=== PATIENT | female | born 1985 | race Caucasian/White ===

== ENCOUNTER 2020-05-05 04:30 | Inpatient (IN) | payer BC, SELFPAY ==
[2020-05-05] VITALS (66 sets, daily range): BP systolic 60–112; BP diastolic 29–75; PULSE 60–96; RESP 12–20; TEMP 36.2–37.1; O2SAT 95–100; BMI 30.1
--- OUTSIDE RECORDS SUMMARY | 2020-05-05 04:51 | XMS_ITS ---
:1985 Author Care Team Providers Name Role Phone Konstantin Del Toro Primary Care Provider Unavailable Allergies Code Code System Name Reaction Severity Status Onset NKDA ? Medications Name Status Start Date Stop Date ? ? Afluria Qd (36 mos up)(PF)60 Active ? Not available mcg (15 mcg x4)/0.5 mL IM syringe Boostrix Tdap 2.5 Lf unit-8 mcg-5 Active ? Not available Lf/0.5 mL intramuscular syringe Multi Vitamin Active ? Not available nitrofurantoin Completed ? 10/09/2019 monohydrate/macrocrystals 100 mg capsule Active ? Not available Problems Name Status Onset Date Source ? Active 11/02/2019 ? Procedures Date Name Performed by ? 06/24/2017 Section Information not avai lable 06/24/2012 Section Information not avai lable 02/23/2008 Breast Surgery Information not avai lable Notes: breast cyst aspiration 10/13/2019 US, Obstetric, 1St Trimester, [place] Single Gestation [address] [place] [address] ([address]) 12/28/2019 US, Obstetric, 2Nd or 3Rd Trimester [facility] [address] [place] [address] (Work [address]) Results
--- OUTSIDE RECORDS SUMMARY | 2020-05-05 04:51 | XMS_ITS | Encounter Summary ---
:1985 Author Reason for Visit OB visit Assessment and Plan Assessment Note Patient is ___weeks . Discu ssed plan. 1. Routine care Discussion Note: None recorded.Patient educational handouts: No information available. Plan of Care Reminders Provider Appointments Surgery 60 [address] Manuel janelleo Nicholas 05/06/2020 MD [place] 7:30AM ? Post Op Konstantin hammer Visit 05/16/2020 MD [place] 10:15AM Lab None ? ? recorded. Referral None ? ? recorded. Procedures None ? ? recorded. Surgeries None ? ? recorded. Imaging None ? ? recorded. Medications Name Start Date ? ? Afluria Qd (36 mos up)(PF)60 mcg (15 mcg x4)/0 .5 mL IM ? syringe Boostrix Tdap 2.5 Lf unit-8 mcg-5 Lf/0.5 mL intramuscu lar syringe ? Multi Vitamin ? ? Medications Administered None recorded. Vitals Height Weight BMI Blood Pressure 5 ft 2 in 161 lbs 29.4 kg/m2 102/67 mm[Hg] Results Lab Results None recorded. Allergies Code Code System Name Reaction Severity Onset
--- OUTSIDE RECORDS SUMMARY | 2020-05-05 04:51 | XMS_ITS | Encounter Summary ---
:1985 Author Reason for Visit OB visit 33wks 0days Assessment and Plan Assessment Note Patient is 33___weeks . Dis cussed plan. 1. Routine care Discussion Note: None [...] ft 2 in 161 lbs 29.4 kg/m2 109/73 mm[Hg] Results Lab Results None recorded. Allergies Code Code System Name
--- OUTSIDE RECORDS SUMMARY | 2020-05-05 04:51 | XMS_ITS | Encounter Summary ---
:1985 Author Reason for Visit OB visit 36wks 6days Assessment and Plan 1. Routine care Discussion Note: None recorded.Patient educational handouts: No information available. Plan of Care Reminders Provider Appointments Surgery 60 Luis Manuel lfo Nicholas 05/06/2020 MD [place] 7:30AM ? Post Op Konstantin Memo harman Visit 05/16/2020 MD [place] 10:15AM Lab None [...] BMI Blood Pressure 5 ft 2 in 169 lbs 30.9 kg/m2 116/76 mm[Hg] Results Lab Results None recorded. Allergies Code Code System Name Reaction Severity Onset NKDA ? ?
--- OUTSIDE RECORDS SUMMARY | 2020-05-05 04:51 | XMS_ITS | Encounter Summary ---
:1985 Author Reason for Visit OB visit 34wks 3days Assessment and Plan 1. Routine care Discussion [...] BMI Blood Pressure 5 ft 2 in 166 lbs 30.4 kg/m2 109/71 mm[Hg] Results Lab Results None recorded. Allergies Code Code System Name Reaction Severity Onset NKDA ? ?
--- OUTSIDE RECORDS SUMMARY | 2020-05-05 04:51 | XMS_ITS | Encounter Summary ---
:1985 Author Reason for Visit OB visit OB [id number] EDC 05/13/2020 LMP 08/07/2019 Assessment and Plan Assessment Note Patient is _28__weeks . Dis cussed plan. 1. Routine care Discussion Note: None recorded.Patient educational handouts: No information available. Plan of Care Reminders Provider Appointments Surgery 60 Luis Manuel foreign Nicholas 05/06/2020 MD [place] 7:30AM ? Post [...] BMI Blood Pressure 5 ft 2 in 156 lbs 28.5 kg/m2 118/74 mm[Hg] Results Lab Results None recorded. Allergies Cod
--- OUTSIDE RECORDS SUMMARY | 2020-05-05 04:51 | XMS_ITS | Encounter Summary ---
:1985 Author Reason for Visit OB visit OB [id number] EDC 05/13/2020 LMP 0 Assessment and Plan Assessment Note Patient is _37__weeks . Dis cussed plan. 1. Routine care [...] BMI Blood Pressure 5 ft 2 in 171 lbs 31.3 kg/m2 111/72 mm[Hg] Results Lab Results None recorded. Allergies
--- OUTSIDE RECORDS SUMMARY | 2020-05-05 04:51 | XMS_ITS | Encounter Summary ---
:1985 Author Reason for Visit OB visit OB [id number] EDC 05/13/2020 LMP 08/12/2019 Assessment and Plan Assessment Note Patient is _36__weeks . Dis cussed plan. 1. Routine care [...] BMI Blood Pressure 5 ft 2 in 164 lbs 30 kg/m2 112/71 mm[Hg] Results Lab Results None recorded. Allergies Cod
[2020-05-05] MEDS: AMPICILLIN 2 GM/NS 100 ML 2 GM/100 ML BAG IVPB (05:24)
[2020-05-05] MEDS: LACTATED RINGERS 1,000 ML 125 ML IV CONT ×2 (05:25→06:59)
[2020-05-05 05:46] LABS: Basophils Percent Auto 0.3 % (0.2-1.2); Eosinophils Absolute Auto 0.1 K/mm3 (0-0.3); Eosinophils Percent Auto 1.2 % (0-4.4); Hematocrit 32.5 % (37.0-47.0); Hemoglobin 10.4 g/dL (12.0-15.0); Immature Granulocyte Absolute 0.03 K/mm3 (0.00-0.031); Immature Granulocyte Percent A 0.4 % (0-0.5); Lymphocytes Absolute Auto 1.32 K/mm3 (0.9-3.2); Mean Corpuscular Volume 87.4 fl (80-100); Mean Platelet Volume 10.6 fl (7.4-10.4); Monocytes Absolute Auto 0.4 K/mm3 (0.1-0.6); Neutrophils Absolute Auto 5.5 K/mm3 (1.3-6.7); Neutrophils Percent Auto 75.1 % (45.5-73.1); Platelet Count Result 225 k/mm3 (150-375); Red Blood Count 3.72 M/mm3 (4.2-5.4); White Blood Count 7.4 K/mm3 (4.5-10.0)
--- NOTE | 2020-05-05 05:50 | P.PNAN_ITS ---
Anes - Eval Pre Procedure Procedure: Operation Date: 05/06/20 07:30 Proposed Procedures p Repeat Section with Bilateral Tubal Ligation - Len Del Toro MD Date/Time: 05/05/20 05:50 Pre Op Diagnosis: SROM, Prior c/s Patient Data Age: 34 Gender: F Height: Weight: Last Vital Signs Temp 36.9 C 05/05/20 04:38 Pulse 87 05/05/20 05:15 BP 110/61 05/05/20 05:15 Allergies Allergy/AdvReac Type Severity Reaction Status Date / Time No Known Drug Allergies Allergy Unknown Verified 12/21/17 14:36 Home Medications Medication Instructions Recorded Confirmed Type PNV cmb#95-ferrous fumarate-FA 1 tablet PO DAILY 04/15/20 04/15/20 History [] Laboratory Tests 05/05/20 05/05/20 05:09 05:09 WBC 7.4 K/mm3 K/mm3 (4.5-10.0) RBC 3.72 M/mm3 L M/mm3 (4.2-5.4) Hgb 10.4 g/dL L g/dL (12.0-15.0) Hct 32.5 % L % (37.0-47.0) MCV 87.4 fl fl (80-100) MCH 28.0 pg pg (26-34) MCHC 32.0 g/dl g/dl (32-36) RDW 14.0 % % (11.5-14.5) Plt Count 225 k/mm3 k/mm3 (150-375) MPV 10.6 fl H fl (7.4-10.4) Immature Gran % (Auto) 0.4 % % (0-0.5) Neut % (Auto) 75.1 % H % (45.5-73.1) Lymph % (Auto) 18.0 % L % (18.3-44.2) [place] % (Auto) 5.0 % % (2.6-8.5) Eos % (Auto) 1.2 % % (0-4.4) Baso % (Auto) 0.3 % % (0.2-1.2) Lymph # (Auto) 1.32 K/mm3 K/mm3 (0.9-3.2) [place] # (Auto) 0.4 K/mm3 K/mm3 (0.1-0.6) Eos # (Auto) 0.1 K/mm3 K/mm3 (0-0.3) Baso # (Auto) 0.0 K/mm3 K/mm3 (0.0-0.1) Abs Immat Gran (auto) 0.03 K/mm3 K/mm3 (0.00-0.031) Absolute Neuts (auto) 5.5 K/mm3 K/mm3 (1.3-6.7) Absolute Nucleated RBC 0.0 K/mm3 K/mm3 (0.0-0.012) Nucleated RBC % 0.0 % % (0.0-0.2) RPR Pending Patient hx anesthesia problems: none Family hx anesthesia problems: none PMFSH Family History Family History Father Hypertension Sibling Asthma Social History Social History Substance use: never Gender identity (if verbalized by the patient): Female Spiritual care concerns: No Exam Day of Procedure 05/05/20 05:50 Patient weight: overweight Heart: regular rate and rhythm Lungs: clear to auscultation and normal air movement Airway: Mallampati scale class II Neurological: alert and oriented
--- NOTE | 2020-05-05 06:11 | PC.NURSE ---
Pt is feeling contractions and breathing with some. Pt getting kids settled and will be here.SVE deferred since SROM.
--- NOTE | 2020-05-05 06:36 | PC.NURSE ---
Pt having contractions through the nights. SROM at 0450. Clear fluid. Contractions on arrival. Pt states tolerable but getting more uncomfortable. Rates as 5-6.
--- NOTE | 2020-05-05 07:23 | PM.IMHP ---
H&P: HPI History of Present Illness Date/Time: 05/05/20 07:23 Chief complaint: SROM, Prior c/s Narrative: Tiki Maldonado is a 34 year old female, multiparous, at 39 weeks gestation presents with spontaneous rupture of membranes. She had a scheduled planned for tomorrow. She has unwanted fertility. We have agreed to perform repeat delivery and tubal ligation. She denies any vaginal bleeding or contractions. She denies any nausea, vomiting, fever, chills. She denies any chest pain or shortness of breath. Review of Systems Constitutional: Constitutional: Reports no additional constitutional complaints, Denies fatigue, Denies headache(s), Denies lethargy and Denies weakness Eyes: Eyes: Reports no additional eye complaints, Denies blurry vision and Denies photophobia ENT: Reports as per HPI, Denies headache(s) and Denies neck pain Cardiovascular: Cardiovascular: Denies chest pain, Denies diaphoresis, Denies leg edema, Denies palpitations and Denies dyspnea Respiratory: Respiratory: Denies hemoptysis, Denies dyspnea and Denies wheezing Gastrointestinal: Gastrointestinal: Denies abdominal pain, Denies melena, Denies bloating, Denies hematochezia, Denies nausea and Denies vomiting Genitourinary: Genitourinary: Reports no additional female genitourinary complaints Musculoskeletal: Musculoskeletal: Denies joint swelling, Denies neck pain, Denies numbness and Denies stiffness Neurologic: Denies Abnormal speech present, Denies confusion, Denies headache(s), Denies numbness and Denies weakness Psychiatric: Psychiatric: Denies anxiety, Denies confusion, Denies depression, Denies homicidal ideation and Denies suicidal ideation Endocrine: Endocrine: Denies fatigue and Denies palpitations Allergic/Immunologic: Allergic/Immunologic: Denies wheezing PMFSH Family History Family History Father Hypertension Sibling Asthma Social History Social History Smoking status: Former smoker Substance use: never Gender identity (if verbalized by the patient): Female Spiritual care concerns: No Meds Home Medications and Allergies Home Medications Medication Instructions Recorded Confirmed Type PNV cmb#95-ferrous fumarate-FA 1 tablet PO DAILY 04/15/20 04/15/20 History [] Allergies Allergy/AdvReac Type Severity Reaction Status Date / Time No Known Drug Allergies Allergy Unknown Verified 12/21/17 14:36 Vital Signs Vital Signs - 24 hr 05/05/20 04:38 05/05/20 05:00 05/05/20 05:15 Temperature 98.4 F Pulse Rate 96 87 Respiratory Rate Blood Pressure 100/75 110/61 05/05/20 06:00 05/05/20 06:30 Temperature 98.4 F Pulse Rate 90 Respiratory Rate 18 Blood Pressure 105/65 Exam Const: General: healthy appearing, comfortable and no acute distress; No confusion Orientation/consciousness: No confusion Eyes: Direct Ophthalmoscopy: No photophobia Resp: Auscultation: clear to auscultation bilaterally, no rales, no rhonchi and no wheezes Cardio: Rate: regular rate Heart sounds: no click, no murmurs and no rubs GI: Inspection: non-distended GI Palp: No abdominal tenderness Auscultation: normal bowel sounds Neuro: General: No confusion Speech: No Abnormal speech present Extrem: General: normal to inspection, no pedal edema and no calf tenderness H&P: Results Labs Labs: Short CBC 05/05/20 Range/Units 05:09 WBC 7.4 (4.5-10.0) K/mm3 Hgb 10.4 L (12.0-15.0) g/dL Hct 32.5 L (37.0-47.0) % Plt Count 225 (150-375) k/mm3 Assessment and Plan Assessment and plan (1) Encounter for female sterilization procedure: Code(s): Z30.2 - Encounter for sterilization Status: Acute (2) Previous delivery, delivered: Code(s): O34.219 - Maternal care for unspecified type scar from previous delivery Status:
--- NOTE | 2020-05-05 08:40 | WPDANESEFPP ---
Anes - Eval Final PreProcedure Day of Procedure 05/05/20 08:40 Patient weight: overweight Heart: regular rate and rhythm Lungs: clear to auscultation Airway: Mallampati scale class II Neurological: alert and oriented ASA classification: II Emergent: no Anesthetic plan: proceed Anesthesia type and monitoring: regional spinal and standard monitoring Informed Consent: The patient's anesthetic plan and its attendant risks and benefits were discussed with the patient/family/POA. Questions were solicited and answers provided to the satisfaction of the patient/family/POA.
[2020-05-05] MEDS: KETOROLAC 30 MG/ML VIAL (*BKC) IV PUSH (09:25)
--- NOTE | 2020-05-05 09:36 | PM.PROC ---
Procedure Note - Detailed Date of procedure: 05/05/20 Pre-op diagnosis: SROM, Prior c/s Unwanted fertility Post-op diagnosis: same Procedure performed: Repeat low-transverse delivery, tubal ligation,Repair of incidental cystotomy Description of procedure: The patient was taken the operating room. She was prepped and draped in the dorsal supine position with leftward tilt after induction of spinal anesthetic. When anesthesia was found to be adequate a low-transverse skin incision was made and carried down to the level the fascia with the knife. The fascial incision was made at the midline with a scalpel. The fascial incision was extended laterally with Sellers scissors. The fascia was tented upward superior and inferior with Rosalva clamps. The rectus muscles were dissected off bluntly. The rectus muscles at the midline. The preperitoneal fat was dissected bluntly at the superior aspect of the separate the rectus muscles. The peritoneal cavity was entered bluntly in the same area. The peritoneal incision was extended superior and inferior. the bladder was positioned high on the uterus. It was about 2[address] up the anterior surface of the uterus. A bladder flap was created. This was difficult. There was dense adhesions between the bladder and the lower uterine segment. Attempt to separate the bladder from the lower uterine segment a defect was created in the bladder dome. The bladder was very thin in this area and it was densely adherent to the lower uterine segment. There was a lot of vascularity in this area as well. With the bladder flap completed , the bladder blade was inserted. A low-transverse incision was made on the uterus with the scalpel. It was carried down the level of the amniotic cavity with a knife. The amniotic cavity bluntly. The uterine incision was made laterally with blunt traction. The was delivered. The cord was clamped and cut. The infant was handed off to waiting pediatric staff. Cord bloods were obtained. The placenta was removed manually. The uterus was exteriorized. Uterus cleared of all clots and debris. Uterus closed in 0 Vicryl in a running locked fashion. Fallopian tube was grasped in the ampullary region with a Joan. It was raised away from the accompanying vein. A window was created in the broad ligament in this area of the tube. 0 Vicryl was used to ligate the proximal distal ends of the skeletonize region of the tube. The segment of the tube was resected with scissors. The cut surfaces were cauterized. On the contralateral side the procedure was performed identically. The uterus was returned to the abdomen. The bladder was repaired with 3 layers imbricated Vicryl suture. The 1st layer being 3 0 Vicryl. The defect was closed in an imbricating fashion. A 2nd layer 2 0 Vicryl was placed. This was done in imbricating fashion to bolster the initial closure. The bladder was filled with methylene blue stained Normal saline. A small defect remained and fluid slowly progressed from this defect. Methylene blue could be visualized through thin layers the bladder wall. The bladder was mobilized freeing it up on the lateral aspects and a 0 Vicryl was then used to bring in more of the bladder dome. Again the bladder was filled with normal saline and was found to be watertight. The gutters were cleared of all clots and debris. The fascia was closed 0 Vicryl in a running fashion. Subcutaneous tissue was irrigated and bleeding areas were cauterized. The skin was closed with subcuticular absorbable carmen. The incision was covered with derma barnett. The patient tolerated the procedure well. She was taken recovery room stable condition. Sponge, lap, needle counts were correct x2. Anesthesia: spinal Surgeon: Len Del Toro MD Estimated blood loss (mL): 210 Drains: No Packing: No Pathology: none sent Complications: Other complications ( Incidental cystotomy.) Conditi
--- NOTE | 2020-05-05 10:49 | SUR.OPER ---
Second blake catheter placed at 0925 due to leaking of fluid around 1st blake catheter.
[2020-05-05] MEDS: OXYTOCIN 30 UNITS/NS 500 ML 30 UNITS/500 ML BAG 125 UNITS IV CONT (11:30)
--- NOTE | 2020-05-05 11:35 | PC.NURSE ---
Edit to charting from [id number] for wound description. Wound well-approximated and dermiplex intact.
[2020-05-05 12:17] LABS: Rapid Plasma Reagin Non-Reactive (NonReactive)
--- NOTE | 2020-05-05 12:18 | OBPPTRN ---
Patient transferred to post room # 290 via stretcher. Support person present. Oriented to unit, room, information board, rooming in, admission packet and security measures. Patient verbalizes understanding.
[2020-05-05] MEDS: DEXTROSE 5%/0.45% SOD CHL 1,000 ML 125 ML IV CONT ×2 (16:04→20:00)
[2020-05-05] MEDS: DOCUSATE SODIUM 100 MG CAPSULE PO (17:45)
[2020-05-05] MEDS: IBUPROFEN 600 MG TABLET PO ×2 (17:45→23:45)
[2020-05-05] MEDS: HYDROcodone/acetaminophen (*CRX) 5-325 MG TABLET 1 TAB PO ×2 (17:46→23:45)
--- NOTE | 2020-05-05 18:40 | PC.NURSE ---
Used the bladder scanner on patient and found only 140mL in patient's bladder. IV bolus given to increase urine output.
[2020-05-06 04:45] VITALS: BP 97/58; PULSE 93; RESP 16; TEMP 36.7
[2020-05-06] MEDS: HYDROcodone/acetaminophen (*CRX) 5-325 MG TABLET 1 TAB PO ×5 (04:47→23:00)
[2020-05-06 05:55] LABS: Basophils Percent Auto 0.3 % (0.2-1.2); Eosinophils Absolute Auto 0.1 K/mm3 (0-0.3); Eosinophils Percent Auto 1.3 % (0-4.4); Hematocrit 25.1 % (37.0-47.0); Hemoglobin 7.9 g/dL (12.0-15.0); Immature Granulocyte Absolute 0.03 K/mm3 (0.00-0.031); Immature Granulocyte Percent A 0.3 % (0-0.5); Lymphocytes Absolute Auto 0.73 K/mm3 (0.9-3.2); Lymphocytes Percent Auto 7.7 % (18.3-44.2); Mean Corpuscular HGB Conc 31.5 g/dl (32-36); Mean Corpuscular Hemoglobin 28.6 pg (26-34); Mean Corpuscular Volume 90.9 fl (80-100); Mean Platelet Volume 10.7 fl (7.4-10.4); Monocytes Absolute Auto 0.6 K/mm3 (0.1-0.6); Monocytes Percent Auto 5.8 % (2.6-8.5); Neutrophils Percent Auto 84.6 % (45.5-73.1); Platelet Count Result 165 k/mm3 (150-375); Red Blood Count 2.76 M/mm3 (4.2-5.4); Red Cell Distribution Width 14.5 % (11.5-14.5); White Blood Count 9.5 K/mm3 (4.5-10.0)
--- NOTE | 2020-05-06 07:45 | WPDANLDPN2 ---
Anes-Prog Note L&D Date/Time: 05/06/20 07:45 Comfortable throughout: section Neuraxial method: spinal Epidural/Spinal procedure site: clean & non-tender Neuro status: Neuro function grossly intact. Cardiovascular status: normal Respiratory status: normal Airway patency: baseline Mental status: baseline Post-Op hydration status: normal Vital Signs: Last Vital Signs Temp 36.7 C 05/06/20 04:45 Pulse 93 05/06/20 04:45 Resp 16 05/06/20 04:45 BP 97/58 L 05/06/20 04:45 Pulse Ox 100 05/05/20 16:00 Pain score (VAS): 07/03 I/O: Intake & Output 05/05/20 05/05/20 05/06/20 15:59 23:59 07:59 Intake Total 600 2285 600 Output Total 1470 1025 650 Balance -870 1260 -50 Post-procedural complaints: none Patient feedback: Patient satisfied with anesthetic care.
--- NOTE | 2020-05-06 07:45 | WPDANLDNPN2 ---
Anes-Prog Note L&D-Neuraxial Date/Time: 05/06/20 07:45 Neuraxial medications: intrathecal PF morphine Opiod-related complaints: none Patient feedback: Patient satisfied with post-operative pain management.
--- NOTE | 2020-05-06 07:54 | PM.OBPNVD ---
OB - PN: Subj Subjective Date/time seen: 05/06/20 07:54 Patient comments: no complaints, pain well controlled, tolerating diet and flatus present OB - PN: Obj Data Labs CBC & Chem 7: 05/06/20 04:46 Labs: Laboratory Results - last 24 hr 05/05/20 05/05/20 05/06/20 05:09 05:09 04:46 WBC 9.5 RBC 2.76 L Hgb 7.9 L Hct 25.1 L MCV 90.9 MCH 28.6 MCHC 31.5 L RDW 14.5 Plt Count 165 MPV 10.7 H Immature Gran % (Auto) 0.3 Neut % (Auto) 84.6 H Lymph % (Auto) 7.7 L [place] % (Auto) 5.8 Eos % (Auto) 1.3 Baso % (Auto) 0.3 Lymph # (Auto) 0.73 L [place] # (Auto) 0.6 Eos # (Auto) 0.1 Baso # (Auto) 0.0 Abs Immat Gran (auto) 0.03 Absolute Neuts (auto) 8.0 H Absolute Nucleated RBC 0.0 Nucleated RBC % 0.0 RPR Non-reactive Blood Type O Positive Antibody Screen Negative OB - PN A/P Plan day: 1 Comments: Post Op LTCS - no problems, incidental cystotomy - to continue Castro for one week, cystogram at that time Time Spent With Patient Time: Total time spent is greater than 50% in coordination of care (as documented) at patient's floor/unit and/or counseling patient: Exam Const: General: cooperative, healthy appearing, comfortable and no acute distress Resp: Auscultation: no crackles, no rales, no rhonchi and no wheezes Cardio: Rhythm: regular rhythm Heart sounds: no click and no murmurs GI: Inspection: non-distended Auscultation: normal bowel sounds Extrem: General: normal to inspection, no pedal edema and no calf tenderness
[2020-05-06 08:20] VITALS: BP 105/62; PULSE 76; RESP 16; TEMP 36.8; O2SAT 100
[2020-05-06] MEDS: DOCUSATE SODIUM 100 MG CAPSULE PO ×2 (08:35→17:29)
[2020-05-06] MEDS: POLYSACCHARIDE IRON COMPLEX 150 MG CAPSULE PO ×2 (08:35→17:29)
[2020-05-06] MEDS: MULTIVIT/MIN/PREN/FOL AC/IRON TABLET 1 TAB PO (08:35)
[2020-05-06] MEDS: IBUPROFEN 600 MG TABLET PO ×3 (08:36→23:00)
[2020-05-06] MEDS: LANOLIN (LANSINOH) 7.5 GM CREAM 1 APPLIC TOPICAL (08:36)
[2020-05-06] MEDS: SIMETHICONE 80 MG TAB.CHEW PO ×4 (13:34→23:00)
[2020-05-06 18:51] VITALS: BP 115/72; PULSE 94; RESP 16; TEMP 36.7
[2020-05-07 08:15] VITALS: BP 104/66; PULSE 88; RESP 18; TEMP 36.6; O2SAT 98
[2020-05-07] MEDS: DOCUSATE SODIUM 100 MG CAPSULE PO ×2 (08:15→16:25)
[2020-05-07] MEDS: HYDROcodone/acetaminophen (*CRX) 5-325 MG TABLET 1 TAB PO ×4 (08:15→22:40)
[2020-05-07] MEDS: IBUPROFEN 600 MG TABLET PO ×3 (08:18→22:40)
[2020-05-07] MEDS: SIMETHICONE 80 MG TAB.CHEW PO ×4 (08:19→22:40)
[2020-05-07] MEDS: MULTIVIT/MIN/PREN/FOL AC/IRON TABLET 1 TAB PO (08:20)
[2020-05-07] MEDS: POLYSACCHARIDE IRON COMPLEX 150 MG CAPSULE PO ×2 (08:20→16:26)
--- NOTE | 2020-05-07 13:36 | PM.OBPNVD ---
OB - PN: Subj Subjective Date/time seen: 05/07/20 1255 Doing well with recovery but very worried about bladder injury. had 1cc urine leakage around the cath associated with what felt like a bladder spasm and she thinks this means the bladder is not healing. Discussed that both small leakage around catheter and some bladder spasms are common in this situation. Reassured, pt voiced feeling better. Baby doing great, . Pain reasonable, no flatus yet, ambulating. Normal lochia. OB - PN: Obj Data Labs CBC & Chem 7: 05/06/20 04:46 OB - PN A/P Time Spent With Patient Time: Routine post op care plus blake for a week due to bladder injury at R CS. Anemia, asymptomatic- iron Doing well. Home probably tomorrow. Exam Narrative: Exam Narrative: NAD blake in abdomen soft, appropriately tender, incision CDI Extremities nontender with 2+ edema
[2020-05-07 18:40] VITALS: BP 105/64; PULSE 76; RESP 16; TEMP 36.8
[2020-05-07] MEDS: BISACODYL 10 MG SUPPOSITORY RECTAL (23:15)
[2020-05-08] MEDS: HYDROcodone/acetaminophen (*CRX) 5-325 MG TABLET 1 TAB PO ×4 (02:40→14:17)
[2020-05-08] MEDS: SIMETHICONE 80 MG TAB.CHEW PO ×4 (02:40→14:18)
[2020-05-08] MEDS: IBUPROFEN 600 MG TABLET PO ×2 (05:30→14:15)
[2020-05-08 08:00] VITALS: BP 109/62; PULSE 74; RESP 18; TEMP 36.8; O2SAT 98
[2020-05-08] MEDS: MULTIVIT/MIN/PREN/FOL AC/IRON TABLET 1 TAB PO (09:21)
[2020-05-08] MEDS: DOCUSATE SODIUM 100 MG CAPSULE PO (09:22)
[2020-05-08] MEDS: POLYSACCHARIDE IRON COMPLEX 150 MG CAPSULE PO (09:22)
--- NOTE | 2020-05-08 10:34 | PM.OBPNVD ---
OB - PN: Subj Subjective Date/time seen: 05/08/20 10:34 POD3 Doing very well. Feels much better after we talked yesterday. Spasms improving. Back sore but pain overall controlled. Had flatus and small BM yesterday evening after suppository. Ambulating. Home with blake. OB - PN: Obj Data Labs CBC & Chem 7: 05/06/20 04:46 OB - PN A/P Plan day: 3 Plan: routine care and discharge home Comments: Doing well. Home today with blake and leg bag cystourethrogram scheduled FU 1 week Time Spent With Patient Time with patient: less than 15 minutes Exam Narrative: Exam Narrative: NAD abdomen soft, appropriately tender, incision CDI Extremities nontender with 1+ edema
--- NOTE | 2020-05-08 10:42 | PM.OBDSVD ---
DS: Admitting Diagnosis Admitting Diagnosis Admitting Diagnosis: SROM, Prior c/s DS: Discharge Diagnosis Discharge Diagnosis (1) Previous delivery, delivered: Code(s): O34.219 - Maternal care for unspecified type scar from previous delivery Status: Acute (2) Cystostomy care: Code(s): Z43.5 - Encounter for attention to cystostomy Status: Acute (3) Encounter for female sterilization procedure: Code(s): Z30.2 - Encounter for sterilization Status: Acute OB - DS: Summary OB Procedures : None OB Procedures Intrapartum: OB Procedures: : P.P. tubal ligation Peripartum Data Procedures: Procedures Operation Date: 05/05/20 07:30 Actual Procedures Side Surgeon p Section Not Applicable Len Del Toro MD Time Spent with Patient Time attestation: Total time spent providing and/or coordinating discharge services:20 min Exam Narrative: Exam Narrative: NAD abdomen soft, appropriately tender, incision CDI DS: Data Data Completed and Pending Completed studies during hospitalization: Pending at discharge 05/05/20 10:09 Surgical [PTH] Routine Discharge Plan Discharge Attending physician on discharge: Cristina Godinez Discharging Clinician: Cristina Godinez Anticipated Discharge Date/Time: 05/08/20 15:00 Patient Disposition: Home, Self-Care Activity: may shower, may drive after 2 weeks and pelvic rest Diet: as tolerated Wound Care Instructions: incision open to air Discharge Instructions: Dr. Del Toro wants you to return to the hospital for an outpatient cystogram. [facility] (next to the Main Hospital entrance) Appointment: 05/12/20 at 9:00 a.m. (ARRIVE BY 8:30 A.M.) Call: when you are in the parking lot to let them know you have arrived: [phone] Bring: Photo ID and Insurance card Anyone accompanying you needs to stay in the car and wait. Patient Instructions: Antibiotic Form Stand Alone Forms: General Discharge Information Follow-up/Referrals: Len Del Toro MD [Physician] - (1 week) Discharge Medications: New hydrocodone-acetaminophen 5-325 mg Tablet 1 tab PO Q3H PRN (Reason: Moderate Pain (4-6)) Qty: 30 RF: 0 Continued PNV cmb#95-ferrous fumarate-FA [] 28 mg iron- 800 mcg Tablet 1 tablet PO DAILY RF: 0 Other Ambulatory Orders: XR cystogram (Routine) Timeframe: 1 Week Location: Determined by Patient Ordered By: Len Del Toro Date of admission: 05/05/20 04:30 Primary Care Provider: PHYSICIAN,BLADDER TIER Admitting Provider: Len Del Toro Attending physician on admission: Len Del Toro Condition: Stable
--- NOTE | 2020-05-08 15:12 | PC.NURSE ---
Patient was given the opportunity to view the discharge video Mother & Baby Care, The First Two Weeks and to ask questions. Patient declined viewing the video and has been given the mother/baby guide for home reference.
[2020-05-09 09:09] VITALS: BP 120/71; PULSE 61; RESP 20; TEMP 36.8; O2SAT 100
== END 2020-05-08 16:50 | disposition home or self-care (01) | DRG 784 ==
LOC: ANHLDR 04:56 → ANHOB2 05-06 12:13 → ANHLDR 05-10 13:49 → ANHOB2 05-10 13:49
PROVIDERS: Admitting Provider Obstetrics & Gynecology; Visit Provider Obstetrics & Gynecology
DX: O34.211 Maternal care for low transverse scar from previous cesarean delivery (principal); O71.5 Other obstetric injury to pelvic organs; N99.72 Accidental puncture and laceration of a genitourinary system organ or structure during other procedure; Z30.2 Encounter for sterilization; N32.89 Other specified disorders of bladder; O99.824 Streptococcus B carrier state complicating childbirth; O77.0 Labor and delivery complicated by meconium in amniotic fluid; Z3A.38 38 weeks gestation of pregnancy; Z37.0 Single live birth
CPT/HCPCS: 36415; 85025; 86592; 86850; 86900; 86901; 88302; A9270; J0131; J0290; J1885; J2274; J2370; J2405; J2590; J7120

== ENCOUNTER 2020-05-11 18:09 | Observation (INO) | payer BC, SELFPAY ==
--- NOTE | 2020-05-11 18:10 | PC.NURSE ---
Patient ambulatory to Labor and Delivery. Pt states she delivered by on 05/05/2020. States that she had bladder repair during and has had blake catheter since that time. Pt is scheduled for cystogram tomorrow morning. Just prior to arrival pt noted small clots in leg bag and then noted birght red blood in bag. Pt arrives with approx 75 c yañez colored urine in leg bag and 2-3 pea size clots noted. Pt states she spoke with Dr. Del Toro prior to arrival and he will coming to see her here. Pt. denies any pain. New urine in bag now noted to be clear and yellow. Pt denies any fever. States she has constipation and has only passed small pellet like stools since day of .
--- NOTE | 2020-05-11 18:50 | PC.NURSE ---
Dr. Del Toro and at bedside.
--- NOTE | 2020-05-11 20:30 | PC.NURSE ---
Soap suds enema given with 2-3 small pellets of stool. No stool noted in rectum.
--- NOTE | 2020-05-11 21:35 | PC.NURSE ---
Addendum entered by Bradford Ceballos RN 05/11/20 21:49: THIS NOTED SHOULD BE TIMED 1830. Original Note: Dr. Del Toor notified of pt arrival and will be in to see patient. Pt leg bag now draining clear yellow urine.
--- NOTE | 2020-05-11 21:37 | PC.NURSE ---
Addendum entered by Bradford Ceballos RN 05/11/20 21:50: NOTE SHOULD BE TIMES 1910 Original Note: Dr. Del Toro had long discussion with pt regarding plan for care. Pt is scheduled for Cysto in morning and will go to office for possible blake removal. Urine draining clear yellow now. No blood at at this time. Dr. Del Toro also removed dressing from . Pt instructed to use dry gauze to keep area clean and dry. Dr. Del Toro and pt discussed constipation. Will give soaps suds enema prior to discharge and pt instructed by Dr. Del Toro regarding over the counter laxatives such as milk of mag and Mag Citrate.
--- NOTE | 2020-07-21 21:21 | PM.OBTRLD ---
OB - Triage/Final Diagnosis Visit Information Comments/Additional reasons for admission: I have assessed the risk for this patient, Tiki Maldonado, and determined that she would benefit from observation care. Final Diagnosis (1) Hematuria: Code(s): R31.9 - Hematuria, unspecified Status: Acute
== END 2020-05-11 21:05 ==
LOC: ANHOBOP 07-06 11:59 → ANHLDR 07-06 12:00
PROVIDERS: Admitting Provider Obstetrics & Gynecology; Referring Provider Obstetrics & Gynecology; Visit Provider Obstetrics & Gynecology
DX: R31.9 Hematuria, unspecified (principal)
CPT/HCPCS: G0378; G0379

== ENCOUNTER 2020-05-12 08:48 | Outpatient (CLI) | payer BC, SELFPAY ==
--- NOTE | ~2020-05-12 | XR_ITS ---
EXAMINATION: XR cystogram EXAM DATE: 05/12/2020 09:38 INDICATION: Z43.5 - Encounter for attention to cystostomy, bladder injury. Bladder repair. TECHNIQUE: Cystogram performed through Castro catheter in position on patient arrival. Patient tolera jean 350 mL of Omnipaque and sterile saline solution. Dose reduction digital pulsed fluoroscopy was us ed at 4 frames per second with DAP 12 Gycm2. FINDINGS: Contour abnormality, fold identified on one of the lateral projections along the superior aspect of the bladder, most likely location of repair. There is no extraluminal contrast seen at any point during the examination. No ureteral reflux. There was about 100 mL of residual after Castro cath eter was opened. IMPRESSION: Superior bladder contour abnormality likely repair site. No extravasation. Reviewed, dictated and finalized at location A. [employer] IMPRESSION: Superior bladder contour abnormality likely repair site. No extrav asation.
== END 2020-05-12 08:49 | disposition home or self-care (01) ==
LOC: ANHIMG 08:51
PROVIDERS: Visit Provider Obstetrics & Gynecology
DX: Z43.5 Encounter for attention to cystostomy (principal)
CPT/HCPCS: 51600; 74430; Q9967

== ENCOUNTER → 2022-02-28 09:07 | Outpatient (CLI) | payer OTHER, SELFPAY ==
--- NOTE | ~2022-02-28 | MMUS_ITS ---
EXAMINATION: MM diagnostic jennfier BI w jessica, US breast RT limited HISTORY: Palpable lump in the upper outer quadrant of the right breast TECHNIQUE: Craniocaudal, mediolateral, and mediolateral oblique 3-D tomosynthesis images of the ailyn ts were performed and synthetic 2-D images were generated. CAD analysis was submitted and interpreted . High resolution limited right breast ultrasound was performed. COMPARISON: 02/10/2015 BREAST PARENCHYMAL COMPOSITION: The breasts are extremely dense, which lowers the sensitivity of mamm ography. FINDINGS: MAMMOGRAPHIC FINDINGS: There is no suspicious mass, calcification, or architectural distortion in either breast to suggest malignancy. Scattered benign-appearing calcifications are present. ULTRASOUND: There is no evidence of focal abnormal solid or cystic mass in the vicinity of the reported palpable abnormality of concern in the right breast. IMPRESSION: 1. No specific mammographic or sonographic correlate is identified for the reported palpable abnormal ity of concern in the right breast. Further evaluation at this time should be based on clinical asses sment. Continued follow-up physical examination is recommended. 2. Recommend routine screening mammography beginning at age 40. BI-RADS Category 2: Benign finding(s). Reviewed, dictated and finalized at location B. IMPRESSION: 1. No specific mammographic or sonographic correlate is identified for the repo rted palpable abnormality of concern in the right breast. Further evaluation at this time should be based on clinical assessment. Continued follow-up physical examination is recommended. 2. Recommend routine screening mammography beginning at age 40. BI-RADS Category 2: Benign finding(s).
== END ==
PROVIDERS: PCP Advanced Practice Midwife; Visit Provider Advanced Practice Midwife
DX: N63.10 Unspecified lump in the right breast, unspecified quadrant (principal); N63.11 Unspecified lump in the right breast, upper outer quadrant
CPT/HCPCS: 76642; 77062; 77066; G0279